=== PATIENT | female | born 1965 | race Caucasian/White ===

== ENCOUNTER 2017-11-04 17:42 | Inpatient (IN) | payer BC ==
--- NOTE | 2017-11-04 18:41 | ED ---
General Adult HPI - General Chief complaint: Psychiatric Symptoms Stated complaint: Mental Health Time Seen by Provider: 11/04/17 17:58 Source: patient, family, RN notes reviewed Mode of arrival: ambulatory Limitations: no limitations - History of Present Illness Initial comments: Chief complaint and history of present illness is a 52-year-old female here with her . There were sent over from her psychologist or psychiatrist office for evaluation. The psychiatrist [place] note saying that he met without a petition outlining her behavior. She has had paranoid thoughts, increased emotions, decreased functioning and lack of insight into need for treatment. She is on Wellbutrin, BuSpar and Seroquel. - Related Data Home Medications Medication Instructions Recorded Confirmed Multivitamins, Thera [Multivitamin 1 tab PO DAILY 11/04/17 11/04/17 (formulary)] [place]-3 Fatty Acids/Fish Oil [Fish 1 cap PO DAILY 11/04/17 11/04/17 Oil 1,000 mg Softgel] QUEtiapine [SEROquel] 100 mg PO HS 11/04/17 11/04/17 Ubidecarenone [Co Q-10] 100 mg PO DAILY 11/04/17 11/04/17 buPROPion HCL [Wellbutrin XL] 300 mg PO DAILY 11/04/17 11/04/17 busPIRone HCl [Buspar] 10 mg PO BID 11/04/17 11/04/17 Allergies Allergy/AdvReac Type Severity Reaction Status Date / Time Sulfa (Sulfonamide Allergy Rash/Hives Verified 11/04/17 19:16 Antibiotics) Review of Systems ROS Statement: Those systems with pertinent positive or pertinent negative responses have been documented in the HPI. Review of systems; patient is denying any headache or chest pain or shortness of breath GI/ problems. She does admit that she's being depressed. States she's not suicidal but her said she has stated and more recently that she wants to be . The patient will confirm this. Patient has lost weight recently. Decreased appetite. All systems are reviewed. Past medical problems sent episodes of hypoglycemia. Surgeries include hysterectomy. Family history mother had tongue cancer. Patient has ALLERGIES to sulfa. Recently she did increase her smoking encouraged to stop or at least decrease. Drink alcohol occasionally socially. Denies taking any medications other than those prescribed. ROS Other: All systems not noted in ROS Statement are negative. Past Medical History Past Medical History: No Reported History Additional Past Medical History / Comment(s): hypoglycemia History of Any Multi-Drug Resistant Organisms: None Reported Past Surgical History: Hysterectomy Past Psychological History: Anxiety, Depression Smoking Status: Current every day smoker Past Alcohol Use History: Occasional Past Drug Use History: None Reported General Exam - General Exam Comments Initial Comments: General: The patient is awake and alert, sent in by her psychiatrist for evaluation for paranoids thoughts decreased functioning of late. reports getting progressively worse over the past several months. Vital signs shows temperature 98.3 pulse 84 respiratory rate 24 pulse ox 96% room air blood pressure 136/81 Eye: Pupils are equal, round and reactive to light, extra-ocular movements are intact ; there is normal conjunctiva bilaterally. No signs of icterus. Ears, nose, mouth and throat: There are moist mucous membranes and no oral lesions. Neck: The neck is supple, there is no tenderness . Cardiovascular: There is a regular rate and rhythm. No murmur, rub or gallop is appreciated. Respiratory: Lungs are clear to auscultation, respirations are non-labored, breath sounds are equal. No wheezes, stridor, rales, or rhonchi. Gastrointestinal: Soft, non-distended, non-tender abdomen without masses or organomegaly noted. There is no rebound or guarding present. No CVA tenderness. Bowel sounds are unremarkable. Back: There is no tenderness to palpation in the midline. There is no obvious deformity. No rashes noted. Musculoskeletal: Normal ROM, no tenderness, There is no pedal edema. There is no calf tenderness or swelling. Sensation intact. Neurological: CN II-XII intact, There are no obvious motor or sensory deficits. Coordination appears grossly intact. Speech is normal. No numbness no tingling no focal or lateralizing findings. Skin: Skin is warm and dry and no rashes or lesions are noted. Psychiatric: Flat affect, admits that she's been depressed. states she has said she wants to be . Her psychiatrist sent her in for evaluation because of paranoid thoughts, increased emotions, decreased functioning and lack of insight into need for treatment. Limitations: no limitations Course Vital Signs 11/04/17 17:47 Temperature 98.3 F Pulse Rate 84 Respiratory 24 Rate Blood Pressure 136/81 O2 Sat by Pulse 96 Oximetry Medical Decision Making - Medical Decision Making Medical decision-making. The patient's here for psychiatric evaluation. Sent in by her psychiatrist. Lately she been hallucinating and stating she wants to . Drug triage is negative for drugs of abuse. No evidence of any Tylenol or aspirin in the system mother. Psychiatric nurse evaluated the patient spoke with the psychiatrist. Patient be admitted to [facility] for the evaluation of the diagnosis of psychosis nonspecific. The signed a petition filled out by the psych nurse. The patient's stated he could not spell well. He did sign the petition. I completed a certificate for admission for further evaluation. Dr. Benz - Lab Data Lab Results 11/04/17 11/04/17 Range/Units 18:52 18:52 Salicylates <1.0 mg/dL Urine Opiates Screen Not Detected (NotDetected) Ur Oxycodone Screen Not Detected (NotDetected) Urine Methadone Screen Not Detected (NotDetected) Ur Propoxyphene Screen Not Detected (NotDetected) Acetaminophen <10.0 ug/mL Ur Barbiturates Screen Not Detected (NotDetected) U Tricyclic Antidepress Not Detected (NotDetected) Ur Phencyclidine Scrn Not Detected (NotDetected) Ur Amphetamines Screen Not Detected (NotDetected) U Methamphetamines Scrn Not Detected (NotDetected) U Benzodiazepines Scrn Not Detected (NotDetected) Urine Cocaine Screen Not Detected (NotDetected) U Marijuana (THC) Screen Not Detected (NotDetected) Disposition Clinical Impression: Psychosis Disposition: TRANSFER TO PSYCH HOSP/UNIT Condition: Serious Referrals: Nimo Torres DO [Primary Care Provider] - 1-2 days
[2017-11-04 19:17] LABS: Acetaminophen <10.0 ug/mL; Amphetamine Screen,Urine Not Detected (NotDetected); Barbiturate Screen,Urine Not Detected (NotDetected); Benzodiazepines Screen,Urine Not Detected (NotDetected); Cocaine Screen,Urine Not Detected (NotDetected); Methadone Screen, Urine Not Detected (NotDetected); Opiate Screen,Urine Not Detected (NotDetected); Oxycodone Screen, Urine Not Detected (NotDetected); Phencyclidine Screen,Urine Not Detected (NotDetected); Salicylate <1.0 mg/dL; Tricyclic Antidepressant,Urine Not Detected (NotDetected); Urn Cannabinoid Scrn Not Detected (NotDetected)
[2017-11-04] MEDS ORDERED: LORazepam 1 MG TAB PO STA (21:02)
[2017-11-04] MEDS ORDERED: LORazepam 1 MG TAB PO PRN (21:59)
[2017-11-04] MEDS ORDERED: MAGNESIUM HYDROXIDE 2,400 MG/10 ML CUP PO PRN (21:59)
[2017-11-04] MEDS ORDERED: ACETAMINOPHEN TAB 325 MG TAB PO PRN (21:59)
[2017-11-04] MEDS ORDERED: ZIPRASIDONE 20 MG VIAL IM PRN (21:59)
[2017-11-04] MEDS ORDERED: MAG HYDROX/AL HYDROX/SIMETH 30 ML CUP PO PRN (21:59)
[2017-11-04] MEDS ORDERED: LORazepam 2 MG/ML INJ IM PRN (22:02)
[2017-11-04 22:12] LABS: Appearance,Urine Clear (Clear); Bilirubin,Urine Negative (Negative); Blood,Urine Negative (Negative); Color,Urine Yellow; Glucose,Urine (UA) Negative (Negative); Ketones,Urine Negative (Negative); Leukocyte Esterase,Urine Negative (Negative); Nitrite,Urine Negative (Negative); Protein,Urine Negative (Negative); Specific Gravity,Urine 1.015 (1.001-1.035); Urobilinogen,Urine <2.0 mg/dL (<2.0)
[2017-11-04] MEDS ORDERED: DIVALPROEX ER 250 MG TAB.ER.24H PO SCH (22:15)
[2017-11-04] MEDS ORDERED: QUEtiapine 100 MG TAB PO SCH (22:15)
[2017-11-05] MEDS: NON-FORMULARY DRUG (Omega-3 Fatty Acids/Fish Oil [Fish Oil 1,000 Mg Softgel] 1 CAP) PO SCH (08:29)
[2017-11-05] MEDS: NICOTINE 14MG/24HR PATCH TRANSDERM SCH (08:29)
[2017-11-05] MEDS: MULTIVITAMINS, THERA 1 EACH TAB PO SCH (08:29)
[2017-11-05 09:17] LABS: Basophils % (A) 1 %; Eosinophils # (A) 0.2 k/uL (0-0.7); Eosinophils % (A) 3 %; HGB 14.8 gm/dL (11.4-16.0); Lymphocytes # (A) 1.6 k/uL (1.0-4.8); Lymphocytes % (A) 23 %; MCH 31.6 pg (25.0-35.0); MCHC 33.7 g/dL (31.0-37.0); MCV 93.6 fL (80.0-100.0); Mean Platelet Volume 7.5; Monocytes # (A) 0.4 k/uL (0-1.0); Monocytes % (A) 6 %; Neutrophils # (A) 4.7 k/uL (1.3-7.7); Neutrophils % (A) 66 %; Platelet Count 226 k/uL (150-450); RDW 12.4 % (11.5-15.5); WBC 7.1 k/uL (3.8-10.6)
[2017-11-05 09:54] LABS: ALT 30 U/L (9-52); AST 24 U/L (14-36); Albumin 3.8 g/dL (3.5-5.0); Alkaline Phosphatase 81 U/L (38-126); Anion Gap 9 mmol/L; Blood Urea Nitrogen 15 mg/dL (7-17); Calcium 9.4 mg/dL (8.4-10.2); Carbon Dioxide 30 mmol/L (22-30); Chloride 104 mmol/L (98-107); Cholesterol 166 mg/dL (<200); Glucose 129 mg/dL (74-99); HDL Cholesterol 71 mg/dL (40-60); LDL Cholesterol,Calculated 82 mg/dL (0-99); Potassium 4.3 mmol/L (3.5-5.1); Sodium 143 mmol/L (137-145); Total Bilirubin 0.8 mg/dL (0.2-1.3); Total Protein 6.3 g/dL (6.3-8.2); Triglycerides 64 mg/dL (<150)
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
[2017-11-05] MEDS: ARIPiprazole 10 MG TAB PO SCH (10:44)
--- NOTE | 2017-11-05 17:45 | CONS ---
CONSULTATION DATE OF CONSULTATION: 11/05/2017 REASON FOR CONSULTATION: Medical management requested by Dr. Manjarrez. CONSULTATION: This is a 52-year-old patient who was admitted through the ER. She follows with Dr. Nimo Torres as a family doctor. Patient was sent in through [facility]. The patient had a petition filed by her stating patient was having paranoid thoughts, visual hallucinations, weight loss; she was stating "I am going to "; she was also having thoughts of having an affair, also having visual hallucinations about the woman he was having an affair with; also that people at work were conspiring against her. Appetite has gone down. She has lost about 10 to 12 pounds recently. Also her sleep has gone down and she was having some hopeless thoughts. Denies harming other people. Patient does take psychotropic medications at home. REVIEW OF SYSTEMS: CONSTITUTIONAL: Tired. Weight loss. HEENT: Some itchiness and dryness in the eye. RESPIRATORY: Some cough. Occasional wheezing. CARDIOVASCULAR: None. GASTROINTESTINAL: None. GENITOURINARY: None. MUSCULOSKELETAL: None. DERMATOLOGICAL: None. HEMATOLOGICAL: None. LYMPHATICS: None. PSYCHIATRY: As above. NEUROLOGICAL: None. PAST MEDICAL HISTORY: 1. Anxiety. 2. Depression. 3. Hypoglycemia. PAST SURGICAL HISTORY: Hysterectomy. SOCIAL HISTORY: . Has smoked about a pack a day for close to 40 years. Alcohol rarely. Denies using recreational drugs. HOME MEDICATIONS: 1. BuSpar 10 mg b.i.d. 2. Wellbutrin XL 300 mg p.o. daily. 3. CO-Q 10 100 mg p.o. daily. 4. Seroquel 100 mg at bedtime. 5. Fish oil 1 capsule p.o. daily. 6. Multivitamin 1 tablet p.o. daily. ALLERGIES: SULFA. PHYSICAL EXAMINATION: Temperature 97.5, pulse 75, respiration 14, blood pressure 125/58, pulse ox 96% on room air. GENERAL APPEARANCE: Thin build, sitting up. BMI 18.9. Anxious-appearing. EYES: Pupils equal. Conjunctivae normal. HEENT: External appearance of nose and ears normal. Oral cavity normal. NECK: JVD not raised. Mass not palpable. RESPIRATORY: Effort normal. LUNGS: Diminished breath sounds. Minimal wheezing. CARDIOVASCULAR: First and second sounds normal. No edema. ABDOMEN: Soft, nontender. Liver and spleen not palpable. LYMPHATIC: No lymph node palpable in neck or axillae. PSYCHIATRY: Patient is answering questions. Mood and affect anxious-appearing. INVESTIGATIONS: White count 7.1, hemoglobin 14.8, potassium 4.3. BUN and creatinine are normal. LDL 82. TSH is normal. UA negative. Urine drug screen negative. ASSESSMENT: 1. Emphysema on clinical examination from smoking with minimal exacerbation, if any. 2. Chronic nicotine dependence. Patient is a cigarette smoker. 3. Psychosis, unspecified. 4. Insomnia from underlying psychiatric condition. PLAN: Patient advised against smoking, getting a nicotine patch. Will put the patient on a short spell of Duonebs while she is in the hospital and hoping that will control the minimum symptoms she has. She should follow up with her family doctor upon discharge. Care was discussed with the patient. Questions were answered. Thank you, Dr. Manjarrez. LAMONT / IVETH: [id number] /
[2017-11-05] MEDS: ARTIFICIAL TEARS-HYPROMELLOSE DROPS 15 ML BTL BOTH EYES SCH ×2 (17:58→20:17)
[2017-11-05] MEDS ORDERED: IPRATROPIUM 0.5 MG/2.5 ML NEBU INHALATION SCH (20:00)
[2017-11-05 20:16] LABS: Hemoglobin A1C 5.9 % (4.0-6.0)
[2017-11-05] MEDS: IPRATROPIUM-ALBUTEROL 3 ML NEB INHALATION SCH (20:26)
[2017-11-05] MEDS ORDERED: QUEtiapine 100 MG TAB PO SCH (21:00)
[2017-11-06 05:30] VITALS: RESP 16
[2017-11-06] MEDS: MULTIVITAMINS, THERA 1 EACH TAB PO SCH (08:46)
[2017-11-06] MEDS: ARIPiprazole 10 MG TAB PO SCH (08:46)
[2017-11-06] MEDS: NICOTINE 14MG/24HR PATCH TRANSDERM SCH (08:47)
[2017-11-06] MEDS: ARTIFICIAL TEARS-HYPROMELLOSE DROPS 15 ML BTL BOTH EYES SCH ×4 (08:47→20:13)
[2017-11-06] MEDS: IPRATROPIUM-ALBUTEROL 3 ML NEB INHALATION SCH ×3 (08:53→22:20)
[2017-11-06] MEDS: NON-FORMULARY DRUG (Omega-3 Fatty Acids/Fish Oil [Fish Oil 1,000 Mg Softgel] 1 CAP) PO SCH (09:11)
--- NOTE | 2017-11-06 14:55 | P.PN ---
Progress Note - Text Interval history: The patient is found in the hallway she follows me to an interview room. She continues to report paranoid thinking. She lacks insight into the symptoms and asked to be discharged. We discussed the events precipitating this admission and treatment goals that we have prior to discharge. She has complied with the Abilify we discussed the purpose of this medication again her questions were answered. She does have a family meeting scheduled for today to be facilitated by social work. Appetite is stable she reports sleeping approximate 7 hours last night. Mental status exam: The patient is a thin female appearing her stated age. Eye contact is appropriate speech is fluent. She is dressed in her own clothing. Hygiene grooming adequate. She reports no suicidal ideation or homicidal ideation. She continues to have some confusion and reports continued paranoid thinking. She lacks insight into her symptoms and asked to be discharged today. She is oriented to person place and date. She demonstrates no verbal or physical aggressiveness. She demonstrates no abnormal involuntary movements. Plan: The patient will continue on the Abilify we will titrate the dose to 15 mg daily. I was able to speak with her psychiatric nurse practitioner yesterday. There appears to be no history of bipolar disorder. We will monitor her for safety and encourage her participation in the milieu.
[2017-11-07] MEDS: NICOTINE 14MG/24HR PATCH TRANSDERM SCH (09:11)
[2017-11-07] MEDS: MULTIVITAMINS, THERA 1 EACH TAB PO SCH (09:12)
[2017-11-07] MEDS: ARTIFICIAL TEARS-HYPROMELLOSE DROPS 15 ML BTL BOTH EYES SCH ×4 (09:12→20:11)
[2017-11-07] MEDS: NON-FORMULARY DRUG (Omega-3 Fatty Acids/Fish Oil [Fish Oil 1,000 Mg Softgel] 1 CAP) PO SCH (09:12)
[2017-11-07] MEDS: ARIPiprazole 15 MG TAB PO SCH (09:13)
[2017-11-07] MEDS: IPRATROPIUM-ALBUTEROL 3 ML NEB INHALATION SCH ×3 (09:43→21:16)
--- NOTE | 2017-11-07 12:13 | P.PN ---
Progress Note - Text Interval history: The patient is found in the library she follows me to an interview room. She initially states the medicine seems to be helping her but she cannot characterize how. She states that she is scared to be honest with her . She feels that the family meeting did not go well however social work notes did not reflect that. She wonders if everything with her family can be fixed or if it's too late. She describes a history of just blurting out statements that may have been offensive. Several times she states she would like to be discharged from the hospital. Again we discussed the the need for her to be more clinically stable prior to discharge. Mental status exam: The patient is a thin female she stressor own clothing she is mildly disheveled. Hygiene is adequate. She has a distraught affect and is almost tearful. She is very uncertain. She feels that she has broken things in her family that may not be able to be fixed. She is vague in describing many of her concerns. She feels that she needs to be honest with her but doesn't know how. She continues to have some paranoid thinking. Insight and judgment is impaired. She demonstrates no verbal or physical aggressiveness she demonstrates no abnormal involuntary movements. She frequently holds her head in her hand as she feels overwhelmed. Plan: The patient will continue on the Abilify. We will monitor her for safety and encourage her participation in the milieu. She continues to have acute symptoms requiring further psychiatric hospitalization. Vital signs reviewed.
[2017-11-07 13:53] VITALS: BMI 18.9
[2017-11-08] MEDS: ARIPiprazole 15 MG TAB PO SCH (08:02)
[2017-11-08] MEDS: NON-FORMULARY DRUG (Omega-3 Fatty Acids/Fish Oil [Fish Oil 1,000 Mg Softgel] 1 CAP) PO SCH (08:02)
[2017-11-08] MEDS: ARTIFICIAL TEARS-HYPROMELLOSE DROPS 15 ML BTL BOTH EYES SCH ×4 (08:02→21:15)
[2017-11-08] MEDS: MULTIVITAMINS, THERA 1 EACH TAB PO SCH (08:02)
[2017-11-08] MEDS: NICOTINE 14MG/24HR PATCH TRANSDERM SCH (08:02)
[2017-11-08] MEDS: IPRATROPIUM-ALBUTEROL 3 ML NEB INHALATION SCH ×3 (09:56→19:14)
--- NOTE | 2017-11-08 11:00 | P.PN ---
Progress Note - Text Interval history: The patient is found in the hallway she follows me to an interview room. She reports that she feels better but continues to ruminate on the same seems that we discussed yesterday. She continues to be fearful and has some paranoid thinking. She is reporting no side effects from the Abilify. Her questions regarding the medication were answered. She continues to voice a preference to be discharged as soon as possible. We discussed that she has a deferral conference scheduled for tomorrow. Mental status exam: The patient is a thin female appearing her stated age. She presents with adequate hygiene grooming. Eye contact is appropriate. She has a sad-appearing affect she is not tearful however. She reports no suicidal or homicidal ideation intent or plan. She is endorsing no hallucinations today. She does continue to have the same ruminative thoughts with some paranoid thinking. She continues to believe that she has done things wrong in the past and doesn't know if they can be fixed. It does not appear that these thoughts are entirely reality based. Insight and judgment are limited. She demonstrates no verbal or physical aggressiveness she demonstrates no abnormal involuntary movements. He Plan: The patient will continue on the Abilify at its current dose. Vital signs reviewed. She reports she has been eating and sleeping adequately. We will monitor for symptoms of psychosis. She is encouraged to continue participating in the milieu and we will continue to monitor for safety.
--- NOTE | 2017-11-08 15:56 | PN ---
PROGRESS NOTE DATE OF SERVICE: 11/08/2017 PRESENTING COMPLAINT: Psychosis. INTERVAL HISTORY: Patient admitted with psychosis to the psychiatric unit. Patient is a smoker, had prescribed nebulized bronchodilators. Patient refused the same. The patient is pretty much withdrawn, being with herself. The patient is still having some psychotic thought process. She has been eating a little bit. Sleep is still somewhat disturbed. Has been up and about otherwise. During my interview, does seem to be somewhat withdrawn. REVIEW OF SYSTEMS: Done for constitutional, cardiovascular, GI, pulmonary; relevant findings as above. CURRENT MEDICATIONS: Current medications are reviewed that include: 1. DuoNeb. 2. Artificial Tears. 3. Nicotine patch. 4. Abilify. PHYSICAL EXAMINATION: Temperature 97.5, pulse 104, respiration 16, blood pressure 99/55. GENERAL APPEARANCE: Sitting on the edge of the bed, comfortable. EYES: Pupils equal. Conjunctivae normal. HEENT: External appearance of nose and ears normal. Oral cavity normal. NECK: JVD not raised. Mass not palpable. RESPIRATORY: Effort normal. LUNGS: Diminished breath sounds. CARDIOVASCULAR: First and second sounds normal. No edema. ABDOMEN: Soft, nontender. Liver and spleen not palpable. PSYCHIATRY: Patient does appear rather withdrawn, but is answering my questions. INVESTIGATIONS: TSH normal. ASSESSMENT: 1. Emphysema in a smoker. Patient is refusing her breathing treatments. 2. Chronic nicotine dependence. Patient is an active cigarette smoker on a nicotine patch. 3. Psychosis, unspecified. 4. Insomnia from underlying psychiatric condition. PLAN: At this point, will discontinue patient's breathing treatments; at least thankfully here patient is not smoking. Patient should at least be discharged with a nicotine patch and follow up with her family doctor. MMODL / IJN: [id number] /
[2017-11-09] MEDS: ARTIFICIAL TEARS-HYPROMELLOSE DROPS 15 ML BTL BOTH EYES SCH ×4 (08:19→22:28)
[2017-11-09] MEDS: NICOTINE 14MG/24HR PATCH TRANSDERM SCH (08:19)
[2017-11-09] MEDS: MULTIVITAMINS, THERA 1 EACH TAB PO SCH (08:20)
[2017-11-09] MEDS: ARIPiprazole 15 MG TAB PO SCH (08:20)
[2017-11-09] MEDS: NON-FORMULARY DRUG (Omega-3 Fatty Acids/Fish Oil [Fish Oil 1,000 Mg Softgel] 1 CAP) PO SCH (08:20)
[2017-11-09] MEDS: IPRATROPIUM-ALBUTEROL 3 ML NEB INHALATION SCH ×3 (09:06→21:18)
--- NOTE | 2017-11-09 09:33 | P.PN ---
Progress Note - Text Interval history: The patient is found in the hallway she follows me to an interview room. She reports her mood is improving. She states that she would like to plan on a discharge today. She has some anxiety regarding her deferral conference today and we reviewed that in detail. We reviewed her psychotropic medication. It does seem that the Wellbutrin helped her mood in the past and we decided that we would reinitiate the Wellbutrin today. Social work notes reviewed they indicate that the patient's 's comfortable her being discharged sometime this week. Vital signs reviewed. The patient states that she sleeping she is eating better. Mental status exam: The patient is a thin female appearing her stated age. Hygiene and grooming are adequate. Eye contact is appropriate. Speech is fluent and spontaneous nonpressured. She maintains a constricted affect. She somewhat repetitive and requesting to go home. She has feelings of guilt regarding the fact that she is here. She is reporting no suicidal or homicidal ideation intent or plan. She is endorsing no auditory or visual hallucinations. She is endorsing no specific delusions. She states she no longer has thoughts of her being unfaithful. For the most part she seems to be sincere in her report however she may be minimizing some symptoms to facilitate a discharge. She demonstrates no verbal or physical aggressiveness she demonstrates no abnormal involuntary movements. Insight and judgment slowly improving. Plan: The patient will continue on her current dose of Abilify we will restart Wellbutrin XL 150 mg in the morning. I will confer with the treatment team regarding her daily status. We will consider discharging her in the next 1-2 days if there are no acute safety risks. She is encouraged to continue participating in the milieu.
[2017-11-09] MEDS: buPROPion XL 150 MG TAB.ER.24H PO SCH (11:38)
[2017-11-10 06:45] VITALS: BP 101/60; PULSE 86; TEMP 97.6
[2017-11-10] MEDS: MULTIVITAMINS, THERA 1 EACH TAB PO SCH (08:35)
[2017-11-10] MEDS: buPROPion XL 150 MG TAB.ER.24H PO SCH (08:35)
[2017-11-10] MEDS: ARIPiprazole 15 MG TAB PO SCH (08:35)
[2017-11-10] MEDS: ARTIFICIAL TEARS-HYPROMELLOSE DROPS 15 ML BTL BOTH EYES SCH (08:35)
[2017-11-10] MEDS: NON-FORMULARY DRUG (Omega-3 Fatty Acids/Fish Oil [Fish Oil 1,000 Mg Softgel] 1 CAP) PO SCH (08:36)
[2017-11-10] MEDS: IPRATROPIUM-ALBUTEROL 3 ML NEB INHALATION SCH ×2 (09:02→12:21)
--- NOTE | 2017-11-10 09:20 | P.DS ---
Providers Date of admission: 11/04/17 21:26 Expected date of discharge: 11/10/17 Attending physician: Rico Manjarrez Consults: 11/04/17 21:59 Consult Physician Routine Consulting Provider: Mickey Cedillo Consult Reason/Comments: follow up H & P Do you want consulting provider notified?: Yes Primary care physician: Nimo Torres - Discharge Diagnosis(es) (1) Psychosis Current Visit: Yes Status: Acute Priority: High Hospital Course: Brief summary of admission note: This patient is a 52-year-old female who was admitted to the mental health unit through the emergency room for acute symptoms of psychosis. The patient was petition by her stating she was having paranoid thoughts visual hallucinations weight loss and stated she wanted to . For 2-3 years she had been struggling with the thought that her was having an extramarital affair. At times she would experience visual hallucinations of the woman she thought he was having the affair with. She described concerns that people at work were conspiring against her and she felt she was monitored by local police that would drive by her home. She endorsed ideas of reference. She has a history of being treated for depression and anxiety symptoms. For full details please refer to my psychiatric evaluation dated 11/15/2017. Summary of hospital course: The patient was admitted to the mental health unit. She was admitted on a petition and clinical certificate. She was allowed to sign a voluntary admission form on the night of her admission however I did not feel that was appropriate due to the severity of her psychosis. Upon meeting her I did not feel she could understand the difference between voluntary and involuntary admission. She had verbalized she wanted to be released immediately and we were not able to have a clear conversation regarding medication choices. I did complete a second clinical certificate. The patient did participate in a deferral conference yesterday and did decide to defer her hearing. She is aware that she has agreed to complying with outpatient treatment for. His 90 days. We discussed the consequences of not complying with treatment as outlined in the deferral agreement. The patient was started on Abilify the dose was titrated to 15 mg daily. She was restarted on Wellbutrin XL 150 mg in the morning. Over the course of the stay the patient's acute symptoms of psychosis have abated. She reports her mood is improved and she feels more capable of caring for herself. Her was involved in a support meeting facilitated by social work which went well. Social work subsequently was in contact with the via phone and he agrees that the patient is improving and he is looking forward to her discharge home. The patient was seen by internal medicine for routine history and physical exam. I was able to discuss her care with her outpatient provider Mr. Cruz during the hospitalization. Mental status exam: The patient is a thin female appearing her stated age. She presents with good hygiene grooming. She is dressed in her own clothing. Eye contact is appropriate speech is fluent spontaneous nonpressured. She reports her mood is better her affect is more euthymic. Her insight has definitely improved her judgment is appropriate. She is reporting no suicidal or homicidal ideation intent or plan. She does not feel hopeless. She is endorsing no auditory or visual hallucinations or specific delusions. There is no observed evidence of psychosis. She demonstrates no tangential thinking loose associations or flight of ideas. She does not appear hypomanic or manic. She seated calmly she demonstrates no agitated behavior she demonstrates no verbal or physical aggressiveness. She demonstrates no abnormal involuntary movements. She remains oriented to person place and date. She demonstrates future oriented thinking outlining several short-term goals. Impressions 1. Psychosis and specified, rule out major depressive disorder recurrent severe with psychosis, rule out bipolar disorder with psychosis Plan: The patient will be discharged mental health unit today to return home residing with her . She will continue on Abilify 15 mg daily and Wellbutrin XL 150 mg in the morning. I suspect the Wellbutrin may be titrated back to the 300 mg dose in the outpatient setting. The patient will continue following up with [facility] where she sees Mr. Cruz and her therapist. There is no imminent safety risk she is appropriate for transition back to outpatient care. She is instructed to return to the hospital with any acute safety concerns. Patient Condition at Discharge: Stable Plan - Discharge Summary Discharge Rx Participant: No New Discharge Prescriptions: New ARIPiprazole [Abilify] 15 mg PO DAILY #30 tab buPROPion XL [Wellbutrin XL] 150 mg PO DAILY #30 tab.er.24h Nicotine 14Mg/24Hr Patch [Habitrol] 1 patch TRANSDERM DAILY #12 patch Continue [place]-3 Fatty Acids/Fish Oil [Fish Oil 1,000 mg Softgel] 1 cap PO DAILY Multivitamins, Thera [Multivitamin (formulary)] 1 tab PO DAILY Ubidecarenone [Co Q-10] 100 mg PO DAILY Discontinued buPROPion HCL [Wellbutrin XL] 300 mg PO DAILY QUEtiapine [SEROquel] 100 mg PO HS No Action busPIRone HCl [Buspar] 10 mg PO BID Discharge Medication List Multivitamins, Thera [Multivitamin (formulary)] 1 tab PO DAILY 11/04/17 [History ] [place]-3 Fatty Acids/Fish Oil [Fish Oil 1,000 mg Softgel] 1 cap PO DAILY [History] Ubidecarenone [Co Q-10] 100 mg PO DAILY 11/04/17 [History] busPIRone HCl [Buspar] 10 mg PO BID 11/04/17 [History] ARIPiprazole [Abilify] 15 mg PO DAILY #30 tab 11/10/17 [Rx] Nicotine 14Mg/24Hr Patch [Habitrol] 1 patch TRANSDERM DAILY #12 patch 11/10/17 [ Rx] buPROPion XL [Wellbutrin XL] 150 mg PO DAILY #30 tab.er.24h 11/10/17 [Rx] Follow up Appointment(s)/Referral(s): [facility] [Outside] - 11/15/17 11:00 am (w/ Hari Bergeron) Nimo Torres DO [Primary Care Provider] - As Needed Patient Instructions/Handouts: Bipolar Disorder (DC) Activity/Diet/Wound Care/Special Instructions: f/u with outpt provider for hbg a1c of 5.9 Activity and diet as tolerated. Avoid the use of street drugs and alcohol. Take all medications as prescribed. When you are in need of refills on your medications please contact your medical provider and/or outpatient psychiatrist to have this done. Please go to scheduled outpatient appointment for aftercare. If symptoms return or become worse call the crisis line at and/ or go to the nearest emergency room for an evaluation.
[2017-11-10] MEDS: NICOTINE 14MG/24HR PATCH TRANSDERM SCH (09:38)
== END 2017-11-10 13:29 | disposition home or self-care (01) | DRG 885 ==
LOC: EC 17:42 → 3MHU 21:26
PROVIDERS: ADMIT Psychiatry & Neurology Psychiatry; ATTEND Psychiatry & Neurology Psychiatry
DX: F29 Unspecified psychosis not due to a substance or known physiological condition (principal); F17.210 Nicotine dependence, cigarettes, uncomplicated; Z68.1 Body mass index [BMI] 19.9 or less, adult; F32.9 Major depressive disorder, single episode, unspecified; F41.9 Anxiety disorder, unspecified; T65.221A Toxic effect of tobacco cigarettes, accidental (unintentional), initial encounter; J68.4 Chronic respiratory conditions due to chemicals, gases, fumes and vapors; G47.00 Insomnia, unspecified; R63.4 Abnormal weight loss; Z53.29 Procedure and treatment not carried out because of patient's decision for other reasons; Z79.899 Other long term (current) drug therapy; Z88.2 Allergy status to sulfonamides; Z71.6 Tobacco abuse counseling; Z90.710 Acquired absence of both cervix and uterus; Z81.8 Family history of other mental and behavioral disorders
CPT/HCPCS: 36415; 80053; 80061; 80306; 81003; 81025; 83036; 83520; 84443; 85025; 99285

== ENCOUNTER → 2024-11-15 | Outpatient (CLI) | payer MEDICARE ==
[2024-11-15 12:07] LABS: INR 0.9 (<1.2); Prothrombin Time 10.1 sec (10.0-12.5)
--- NOTE | 2024-11-15 12:48 | CT ---
All EXAMINATION TYPE: CT right knee - [facility] Protocol DATE OF EXAM: 11/15/2024 12:31 PM COMPARISON: None. CLINICAL INDICATION: Female, 59 years old with history of M17.11 UNILATERAL PRIMARY OSTEOARTHRITIS, R IGHT KN, pre-op right knee, TECHNIQUE: Axial CT was performed with sagittal and coronal reformats. 3D reconstruction performed on a separate workstation. IV CONTRAST: , patient injected with mL of . (None if empty) CT DLP: 453.9 mGycm, Automated exposure control for dose reduction was used. FINDINGS: Severe narrowing medial tibiofemoral joint space underlying subchondral sclerosis and associated spur formation. Patellofemoral joint space is well-preserved as is the lateral compartment. No fracture o r dislocation. Right hip and right ankle are grossly unremarkable. IMPRESSION: 1. Preoperative planning for osteoarthritis right knee. [facility], , 11/15/2024 12:46 PM
[2024-11-15 15:57] LABS: ALT 21 U/L (8-44); AST 26 U/L (13-35); Alkaline Phosphatase 107 U/L (41-126); Blood Urea Nitrogen 11.4 mg/dL (9.0-27.0); Calcium 9.6 mg/dL (8.7-10.3); Chloride 104 mmol/L (96-109); Glucose 89 mg/dL (70-110); Potassium 4.7 mmol/L (3.5-5.5); Sodium 140 mmol/L (135-145); Total Bilirubin 0.4 mg/dL (0.3-1.2)
[2024-11-15 16:02] LABS: Basophils # (A) 0.07 X 10*3/uL (0.00-0.10); Basophils % (A) 0.7 %; Eosinophils # (A) 0.64 X 10*3/uL (0.04-0.35); Eosinophils % (A) 6.6 %; HCT 37.1 % (37.2-46.3); HGB 12.3 g/dL (12.0-15.0); Lymphocytes # (A) 1.78 X 10*3/uL (0.90-5.00); Lymphocytes % (A) 18.4 %; MCH 32.5 pg (27.0-32.0); MCHC 33.2 g/dL (32.0-37.0); MCV 98.1 FL (80.0-97.0); Mean Platelet Volume 12.3 FL (9.5-12.2); Monocytes # (A) 0.57 X 10*3/uL (0.20-1.00); Monocytes % (A) 5.9 %; NRBC Per 100 WBC 0 X 10*3/uL (0.00-0.01); Neutrophils # (A) 6.61 X 10*3/uL (1.80-7.70); Neutrophils % (A) 68.2 %; Platelet Count 237 X 10*3/uL (140-440); RBC 3.78 X 10*6/uL (4.10-5.20); RDW 12.8 % (11.5-14.5); WBC 9.69 X 10*3/uL (4.50-10.00)
== END ==
LOC: LABWHC1 11:06
PROVIDERS: ATTEND Orthopaedic Surgery
DX: Z01.818 Encounter for other preprocedural examination (principal); M17.11 Unilateral primary osteoarthritis, right knee; M21.161 Varus deformity, not elsewhere classified, right knee; Z22.322 Carrier or suspected carrier of Methicillin resistant Staphylococcus aureus
CPT/HCPCS: 36415; 80053; 83036; 85025; 85610; 85730; 87070

== ENCOUNTER 2024-12-08 10:19 | Day surgery (SDC) | payer MEDICARE ==
[~2024-12-08 10:19] MED LIST: TRANEXAMIC 1,000 MG/100ML-NACL 1,000 MG in SALINE 1 100ML.BAG IV PRN; TRANEXAMIC 1,000 MG/100ML-NACL 1,000 MG in SALINE 1 100ML.BAG IVPB PRN
[2024-12-08] MEDS: IV FLUID CONTINUATION 1,000 ML IV ONE (10:35)
[2024-12-08] MEDS: ONDANSETRON 4 MG/2 ML VIAL IVP PRN (11:11)
[2024-12-08] MEDS: oxyCODONE ER 10 MG TAB.ER.12H PO PRN (11:11)
[2024-12-08] MEDS: ACETAMINOPHEN TAB 500 MG TAB PO PRN (11:11)
[2024-12-08] MEDS: LACTATED RINGERS 1,000 ML IV SCH (11:11)
[2024-12-08] MEDS: DOCUSATE 100 MG CAP PO PRN (11:11)
[2024-12-08] MEDS: FAMOTIDINE 20 MG/2 ML VIAL IVP PRN (11:12)
[2024-12-08] MEDS: DEXAMETHASONE SOD PHOSPHATE 10 MG/ML 1 ML VIAL IV PRN (11:12)
[2024-12-08] MEDS: KETOROLAC 15 MG/ML 1 ML VIAL IVP PRN (11:13)
[2024-12-08] MEDS: MIDAZOLAM 2 MG/2 ML VIAL IV PRN (11:21)
--- NOTE | 2024-12-08 11:46 | P.ANPRN ---
Procedure Note - Anesthesia - Nerve Block Performed Right iPack Single Time Out Performed: Yes Date of Procedure: 12/08/24 Procedure Start Time: Procedure Stop Time: Location of Patient: PreOp Indication: Acute Post-Operative Pain, Analgesia, Requested by Surgeon Sedation Type: Sedate with meaningful contact maintained Preparation: Sterile Prep Position: Left Lateral Catheter: None Needle Types: Pajunk Needle Gauge: 21 Ultrasound used to visualize needle placement: Yes Ultrasound used to observe medication spread: Yes Injectate: 0.5% Ropivacaine (see comment for volume) ([id number]) Blood Aspirated: No Pain Paresthesia on Injection Noted: No Resistance on Injection: Normal Image Stored and Saved: Yes Events: Uneventful and Well Tolerated
--- NOTE | 2024-12-08 11:47 | P.ANPRN ---
Procedure Note - Anesthesia - Nerve Block Performed Right Adductor Canal Single Time Out Performed: Yes Date of Procedure: 12/08/24 Procedure Start Time: Procedure Stop Time: Location of Patient: PreOp Indication: Acute Post-Operative Pain, Analgesia, Requested by Surgeon Sedation Type: Sedate with meaningful contact maintained Preparation: Sterile Prep Position: Supine Catheter: None Needle Types: Pajunk Needle Gauge: 21 Ultrasound used to visualize needle placement: Yes Ultrasound used to observe medication spread: Yes Injectate: 0.5% Ropivacaine (see comment for volume) ([id number]) Blood Aspirated: No Pain Paresthesia on Injection Noted: No Resistance on Injection: Normal Image Stored and Saved: Yes Events: Uneventful and Well Tolerated
[2024-12-08] MEDS ORDERED: ROCURONIUM 10 MG/ML (5 ML VIAL) IV ONE (12:50)
[2024-12-08] MEDS ORDERED: SUCCINYLCHOLINE CHLORIDE 200 MG/10 ML VIAL IV ONE (12:50)
[2024-12-08] MEDS ORDERED: DEXAMETHASONE SOD PHOSPHATE 4 MG/ML 1 ML VIAL ONE (12:50)
[2024-12-08] MEDS ORDERED: fentaNYL (PF) 50 MCG/ML 2 ML AMP ONE (12:50)
[2024-12-08] MEDS ORDERED: LIDOCAINE 1% INJ 10MG/ML (20 ML MDV) ONE (12:50)
[2024-12-08] MEDS ORDERED: ROPIVACAINE 5 MG/ML 30 ML VIAL ONE (12:50)
[2024-12-08] MEDS ORDERED: TRANEXAMIC 1,000 MG/100ML-NACL PREMIX BAG ONE (12:50)
[2024-12-08] MEDS ORDERED: PROPOFOL 10 MG/ML 20 ML VIAL IV ONE (12:50)
[2024-12-08] MEDS ORDERED: MIDAZOLAM 2 MG/2 ML VIAL ONE (12:50)
[2024-12-08] MEDS ORDERED: NEOSTIGMINE 1 MG/ML 10 ML VIAL ONE (12:50)
[2024-12-08] MEDS ORDERED: HYDROmorphone (PF) 1 MG/ML ONE (12:50)
[2024-12-08] MEDS ORDERED: GLYCOPYRROLATE 0.2 MG/ML 2 ML VIAL ONE (12:50)
[2024-12-08] MEDS ORDERED: PHENYLEPHRINE-0.9% NACL SYG 1,000 MCG/10 ML SYRINGE ONE (12:50)
[2024-12-08] MEDS: ceFAZolin 2 GM in DEXTROSE 5% IN WATER 50 ML IVPB PRN (12:55)
[2024-12-08] MEDS: ROPIVACAINE/EPI/CLONIDINE/KET 50 ML SYRINGE MISCELLANE PRN (13:20)
[2024-12-08] MEDS ORDERED: MAGNESIUM HYDROXIDE 2,400 MG/30 ML CUP PO PRN (14:42)
[2024-12-08] MEDS ORDERED: TEMAZEPAM 15 MG CAP PO PRN (14:42)
[2024-12-08] MEDS ORDERED: diazePAM 5 MG TAB PO PRN ×2 (14:42)
[2024-12-08] MEDS ORDERED: NA PHOS,M-B/NA PHOS,DI-BA 133 ML ENEMA RECTAL PRN (14:42)
[2024-12-08] MEDS ORDERED: HYDROmorphone 0.5 MG/0.5 ML SYRINGE IVP PRN (14:42)
[2024-12-08] MEDS ORDERED: bisacodyL 10 MG SUPP RECTAL PRN (14:42)
[2024-12-08] MEDS ORDERED: ONDANSETRON 4 MG/2 ML VIAL IVP PRN (14:42)
[2024-12-08] MEDS ORDERED: NALOXONE 0.4 MG/ML 1 ML VIAL IV PRN (14:42)
--- NOTE | 2024-12-08 14:42 | P.OP ---
Date of Procedure: 12/08/24 Preoperative Diagnosis: 1. Severe right knee osteoarthritis 2. Prior cigarette smoking Postoperative Diagnosis: Same Procedure(s) Performed: 1. Right total knee arthroplasty 2. Computer assisted musculoskeletal navigation using CT/MRI images Implants: 1. [place] Triathlon CR Femur Size #2 2. [place] Triathlon [place] Tibial Base Size #2 3. [place] Triathlon CS poly Size #2, 9-mm 4. [place] Triathlon all poly patella, Size #29 Anesthesia: RICK, regional Surgeon: Jakub García Software Test Automation Engineer #1: Brian Lopez Estimated Blood Loss (ml): 100 IV fluids (ml): 800 Pathology: none sent Condition: stable Disposition: PACU Indications for Procedure: I met with the patient preoperatively in the office setting and discussed treatment of their symptomatic knee arthritis. They failed a long course of nonsurgical treatment and elected to proceed with an elective total knee replacement. I discussed the potential risks and complications at length and gave them ample time to ask questions. Risks discussed included: risks from anesthesia, superficial site surgical infection, acute and/or chronic periprosthetic joint infection, delayed wound healing, drainage, wound necrosis, instability, stiffness, stiffness requiring manipulation and/or revision surgery, damage to local blood vessels or nerves, aseptic loosening of the implants, extensor mechanism issues including disruption, patellar maltracking, avascular necrosis etc., continued or worsened knee pain, generalized dissatisfaction with surgical outcome, need for revision surgery, an inability to regain preinjury level of function, DVT, PE, other medical complications, and possibly loss of life or limb. The patient voiced their understanding that while these are the most common complications other less common complications are possible. They provided both their verbal and written consent to go forward with surgery. The patient has a history of smoking and states she quit 2 weeks prior to surgery. She understands her elevated risk of wound healing and infection if she resumes smoking. She was strongly encourage to refrain from smoking. Operative Findings: Tricompartmental osteoarthritis Description of Procedure: The patient was identified in preoperative holding and the correct operative extremity was verified and marked with a marker. I reviewed the consent form w ith the patient at length. All of their questions were answered. The patient was given a block by anesthesia. They were then brought back to the operating room. They were transferred onto the operating room table where a general anesthetic, preoperative antibiotics, and tranexamic acid were administered by anesthesia. A tourniquet was applied to the proximal aspect of the operative extremity. The contralateral extremity was padded under the heel and secured to the operating room table with a nonsterile blue towel and tape. The ipsilateral arm was carefully draped across the patient's chest and secured with a pillow and foam. A post was applied over the lateral aspect of the ipsilateral thigh and a bolster was placed under the ipsilateral foot. I verified that the operative extremity was stable and the knee was flexed to 90. The operative extremity was then placed in a leg hernandez, nonsterile drapes were applied, and the extremity was prepped and draped sterilely in the standard sterile fashion. Prior to starting surgery timeout was performed identifying the correct patient, operative extremity, and procedure. The leg was then elevated, exsanguinated with an Esmarch bandage, and the tourniquet was inflated. An anterior midline incision was made sharply with a scalpel. Once I had dissected deep to the superficial fascial layer medial and lateral flaps were elevated. A medial parapatellar arthrotomy was created. Upon opening the knee joint there were diffuse arthritic changes in all 3 compartments. The anterior horn of the medial meniscus were sharply released and a medial release was performed around the posterior medial corner of the knee to facilitate retractor placement. The fat pad was excised with electrocautery. Remnants of the ACL and PCL were then excised from the notch. 4 mm pins were then placed within the incision in the medial distal femur and proximal tibia. Arrays were applied to the pins and I verified they were completely tightened. The knee was then registered with the Cirqle robot and manipulations in implant position were made to balance the knee and opitmize implant position. Using the Cirqle robotic saw all cuts were made in accordance with our plan. After all bony fragments had been removed the cuts were verified with the planar probe. The tibia was then subluxed forward and sized. The knee was brought into flexion and a lamina recreation instructor was placed to allow removal of the meniscal remnants both medially and laterally as well as posterior osteophytes. Local anesthetic was then infiltrated around the joint capsule. Trial implants were then placed within the knee. Range of motion and collateral ligament tension was then evaluated. Adjustments in implant size and position were then made accordingly. Once the knee was felt to be appropriately balanced the Gigi pins were removed. The patella was then cut, sized, and punched. A trial patellar button was then placed. With the trial components in place, the patella tracked midline. The femur was then drilled and the trial component removed. The trial tibial component was then appropriately rotated, pinned, and prepared for the keel. All trial components were then removed from the knee. The knee was thoroughly irrigated with pulsatile lavage. Cement was prepared via vacuum mixing in a bowl on the back table. Once the cement had reached appropriate consistency, I hand pressurized cement into the tibia and gently impacted the tibial implant into place. Cement was carefully removed from around the tibial tray and the poly liner was tapped into placed, engaging the locking mechanism. The femur was then exposed and cement was hand pressurized into the cut surfaces. The femoral implant was gently tapped into place and cement was carefully removed. A wet lap sponge was used to wipe down the bearing surface of the femur and the knee was extended to further pressurize cement. With the knee extended, cement was pressurized into the cut surface of the patella and the patella button was placed and compressed with a clamp. All extruded cement was removed including from the pin sites. The knee was held in extension until the cement had fully hardened. Once the cement had hardened the knee was evaluated one final time with the final polyethylene liner in place. The knee had full extension and flexion and felt stable to varus and valgus stress throughout the arc of motion. The tourniquet was released and with the tourniquet down the patella tracked midline. All bleeders were controlled with electrocautery. The knee was then soaked for 3 minutes with a dilute Betadine soak. The knee was thoroughly irrigated using 3 L of sterile saline and pulsatile lavage. A deep drain was placed. The extensor mechanism was then reapproximated using pop off Vicryl sutures followed by a running barbed suture. The knee was then closed in layers with a 0 strata fix for the deep fascial layer, 2-0 strata fix for the superficial subcutaneous layer and Monocryl and Steri-Strips for the skin. A sterile dressing and drain sponge were applied. I verified that all instrument, sponge, and sharp counts were correct. The patient was then transferred off the operating room table, extubated, and brought to recovery having tolerated the procedure well. Brian Lopez PA-C was required as a skilled assistant to the vice president due to the complexity of surgery for patient positioning, draping, exposure, retraction, closure of wound and application of dressing. PLAN: The patient can weight-bear as tolerated on the operative extremity. DVT prophylaxis with aspirin 81 mg twice a day based on preoperative risk stratification. Follow-up in the office in 2 weeks for wound check and x-rays of the knee including an AP and lateral.
--- NOTE | 2024-12-08 15:19 | XR ---
EXAMINATION TYPE: XR knee limited RT DATE OF EXAM: 12/08/2024 3:12 PM COMPARISON: CT CLINICAL INDICATION: Female, 59 years old with history of Evaluation for Postop abnormality and align ment; PHH, pain TECHNIQUE: XR knee limited RT 11/15/2024 views submitted. FINDINGS: Status post total knee arthroplasty changes with hardware in appropriate alignment and in tact. No evidence of fracture. Subcutaneous lucencies and lucencies within the joint consistent with surgical changes. IMPRESSION: Status post total knee arthroplasty changes with hardware intact and appropriate alignment. No fractu res identified. Joint spaces are preserved. No significant degeneration changes of the knee. [facility], , 12/08/2024 3:17 PM
[2024-12-08] MEDS: HYDROmorphone 0.5 MG/0.5 ML SYRINGE IVP PRN ×2 (15:31→20:48)
[2024-12-08] MEDS: HYDROcodone/APAP 10-325MG 1 EACH TAB PO PRN (17:35)
[2024-12-08] MEDS: hydrOXYzine pamoate 25 MG CAP PO PRN (17:38)
[2024-12-08] MEDS: SODIUM CHLORIDE 0.9% 1,000 ML IV SCH (19:56)
[2024-12-08 19:58] VITALS: RESP 17
[2024-12-08] MEDS: ASPIRIN 81 MG PO SCH (20:48)
[2024-12-08] MEDS: SENNOSIDES-DOCUSATE SODIUM 1 EACH TAB PO SCH (20:48)
[2024-12-08] MEDS: ceFAZolin 2 GM in DEXTROSE 5% IN WATER 50 ML IVPB SCH (21:33)
[2024-12-09] MEDS: HYDROcodone/APAP 5-325MG 1 EACH TAB PO PRN (00:28)
[2024-12-09 02:00] VITALS: PULSE 62
[2024-12-09] MEDS: HYDROmorphone 2 MG/ML 1 ML SYRINGE IVP PRN (03:21)
--- NOTE | 2024-12-09 08:49 | P.DS ---
Providers Date of admission: 12/08/2024 Attending physician: Jakub García Consults: 12/08/24 14:42 Consult Physician Routine Consulting Provider: Guzman Urias Consult Reason/Comments: post op medical management Do you want consulting provider notified?: Yes Primary care physician: Guzman Urias Hospital Course: The patient is a very pleasant 59-year-old female who was admitted yesterday and underwent an uncomplicated total knee replacement. Following surgery she was transferred to the orthopedic floor. She received 2 doses of postoperative antibiotics. She was transitioned from IV to oral pain medication. She was seen by me on postoperative day #1 and was doing well. The dressing over her knee was intact with no drainage or strikethrough. She had mild swelling. Femoral nerve function was intact. She was able to actively plantarflex and dorsiflex her ankle and her toes. She worked with physical therapy and did well. The patient had no complaints this morning other than mild pain. Internal medicine has been consulted but has not yet seen the patient. She was ultimately cleared for discharge home. Patient Condition at Discharge: Good Plan - Discharge Summary Discharge Rx Participant: No New Discharge Prescriptions: New Aspirin 81 mg PO BID #60 tab HYDROcodone/APAP 10-325MG [Weems 10-325] 1 tab PO Q6HR PRN #24 tab PRN Reason: Pain Ondansetron [Zofran] 4 mg PO Q8HR PRN #12 tab PRN Reason: Nausea Docusate [Colace] 100 mg PO BID #60 capsule Omeprazole [PriLOSEC] 40 mg PO DAILY #30 cap Doxycycline Monohydrate [Monodox] 100 mg PO BID #28 cap No Action [place]-3 Fatty Acids/Fish Oil [Fish Oil 1,000 mg Softgel] 1 cap PO DAILY Multivitamins, Thera [Multivitamin (formulary)] 1 tab PO DAILY Ubidecarenone [Co Q-10] 100 mg PO DAILY Nicotine 14Mg/24Hr Patch [Habitrol] 1 patch TRANSDERM DAILY #12 patch Albuterol Inhaler [Ventolin Hfa Inhaler] 1 - 2 inh INHALATION QID PRN PRN Reason: Shortness Of Breath Docusate [Colace] 100 mg PO DAILY PRN PRN Reason: Constipation DULoxetine HCL [Cymbalta] 60 mg PO DAILY Naproxen [Naprosyn] 500 mg PO DAILY PRN PRN Reason: Pain Aspirin [Adult Low Dose Aspirin EC] 81 mg PO HS Ezetimibe [Zetia] 10 mg PO DAILY Budesonide/Glycopyr/Formoterol [Breztri Aerosphere Inhaler] 1 puff INHALATION DAILY Sodium Chloride [Saline Nasal Mist] 1 dose NASAL DAILY PRN PRN Reason: Congestion Acetaminophen Tab [Tylenol Tab] 1,000 mg PO Q6H PRN PRN Reason: Pain Rosuvastatin [Crestor] 40 mg PO HS Plecanatide [Trulance] 3 mg PO DAILY Omeprazole [PriLOSEC] 20 mg PO DAILY Furosemide [Lasix] 20 mg PO DAILY Ipratropium [place] 0.06%Nasal [Atrovent Nasal 0.06%] 1 spray INHALATION DAILY Discharge Medication List Multivitamins, Thera [Multivitamin (formulary)] 1 tab PO DAILY 11/04/17 [History] [place]-3 Fatty Acids/Fish Oil [Fish Oil 1,000 mg Softgel] 1 cap PO DAILY 11/04/17 [History] Ubidecarenone [Co Q-10] 100 mg PO DAILY 11/04/17 [History] Nicotine 14Mg/24Hr Patch [Habitrol] 1 patch TRANSDERM DAILY #12 patch 11/10/17 [Rx] Acetaminophen Tab [Tylenol Tab] 1,000 mg PO Q6H PRN 12/05/24 [History] Albuterol Inhaler [Ventolin Hfa Inhaler] 1 - 2 inh INHALATION QID PRN 12/05/24 [History] Aspirin [Adult Low Dose Aspirin EC] 81 mg PO HS 12/05/24 [History] Budesonide/Glycopyr/Formoterol [Breztri Aerosphere Inhaler] 1 puff INHALATION DAILY 12/05/24 [History] DULoxetine HCL [Cymbalta] 60 mg PO DAILY 12/05/24 [History] Docusate [Colace] 100 mg PO DAILY PRN 12/05/24 [History] Ezetimibe [Zetia] 10 mg PO DAILY 12/05/24 [History] Furosemide [Lasix] 20 mg PO DAILY 12/05/24 [History] Ipratropium [place] 0.06%Nasal [Atrovent Nasal 0.06%] 1 spray INHALATION DAILY 12/05/24 [History] Naproxen [Naprosyn] 500 mg PO DAILY PRN 12/05/24 [History] Omeprazole [PriLOSEC] 20 mg PO DAILY 12/05/24 [History] Plecanatide [Trulance] 3 mg PO DAILY 12/05/24 [History] Rosuvastatin [Crestor] 40 mg PO HS 12/05/24 [History] Sodium Chloride [Saline Nasal Mist] 1 dose NASAL DAILY PRN 12/05/24 [History] Aspirin 81 mg PO BID #60 tab 12/09/24 [Rx] Docusate [Colace] 100 mg PO BID #60 capsule 12/09/24 [Rx] Doxycycline Monohydrate [Monodox] 100 mg PO BID #28 cap 12/09/24 [Rx] HYDROcodone/APAP 10-325MG [[place] 10-325] 1 tab PO Q6HR PRN #24 tab 12/09/24 [Rx] Omeprazole [PriLOSEC] 40 mg PO DAILY #30 cap 12/09/24 [Rx] Ondansetron [Zofran] 4 mg PO Q8HR PRN #12 tab 12/09/24 [Rx] Follow up Appointment(s)/Referral(s): Jakub García MD [Medical Doctor] - 2 Weeks Activity/Diet/Wound Care/Special Instructions: 1. Weight-bear as tolerated on your operative extremity unless instructed otherwise. Use a walker or other assistive device to ambulate. 2. Leave surgical dressing in place. If your dressing becomes saturated with blood, there is drainage, or the dressing becomes loose please contact the office. 3. It is okay to shower with your surgical dressing, but do not submerge in water (no hot tubs, bath's, swimming etc.) 4. Make sure to take her blood clot prevention medication as prescribed (aspirin, Eliquis, Xarelto, and Plavix are commonly prescribed medications for blood clot prevention) 5. While taking [place] or Percocet for pain make sure you're taking a stool softener (Colace) and drink lots of water. 6. Keep all follow-up appointments as scheduled. You will usually be seen in 1-2 weeks following surgery. 7. Please contact the office with any questions or concerns [phone] Discharge Disposition: HOME WITH HOME HEALTH SERVICES
[2024-12-09 09:31] LABS: HCT 30.1 % (37.2-46.3); HGB 9.8 g/dL (12.0-15.0); MCHC 32.6 g/dL (32.0-37.0); MCV 98.4 FL (80.0-97.0); Mean Platelet Volume 11.7 FL (9.5-12.2); NRBC Per 100 WBC 0 X 10*3/uL (0.00-0.01); Platelet Count 190 X 10*3/uL (140-440); RBC 3.06 X 10*6/uL (4.10-5.20); RDW 12.4 % (11.5-14.5); WBC 15.44 X 10*3/uL (4.50-10.00)
[2024-12-09 09:32] LABS: Basophils # (A) 0.01 X 10*3/uL (0.00-0.10); Basophils % (A) 0.1 %; Eosinophils # (A) 0 X 10*3/uL (0.04-0.35); Eosinophils % (A) 0 %; Lymphocytes # (A) 1.15 X 10*3/uL (0.90-5.00); Lymphocytes % (A) 7.4 %; Monocytes # (A) 0.86 X 10*3/uL (0.20-1.00); Monocytes % (A) 5.6 %; Neutrophils # (A) 13.36 X 10*3/uL (1.80-7.70); Neutrophils % (A) 86.5 %
[2024-12-09 10:46] VITALS: BP 119/70; TEMP 97.5
== END 2024-12-09 12:11 | disposition home health service (06) ==
LOC: OR 10:19 → 4SSUR 14:55 → OR 12-09 12:11
PROVIDERS: ATTEND Orthopaedic Surgery
DX: M17.11 Unilateral primary osteoarthritis, right knee (principal); F17.210 Nicotine dependence, cigarettes, uncomplicated; Z96.651 Presence of right artificial knee joint; Z88.2 Allergy status to sulfonamides; Z79.51 Long term (current) use of inhaled steroids; Z79.899 Other long term (current) drug therapy
CPT/HCPCS: 0055T; 27447; 64447; 64473; 85025

== ENCOUNTER → 2025-03-01 | Outpatient (CLI) | payer MEDICARE ==
--- NOTE | 2025-03-01 16:24 | MM ---
Reason for Exam: Screening (asymptomatic). Last mammogram was performed 2 year(s) and 4 month(s) ago. Patient History: Menarche at age 12. First Full-Term at age 24. Hysterectomy at age 41. Postmenopausal. US biopsy breast VAD LT - 2 on the Left side. Maternal grandmother had breast cancer. Risk Values: Pura 5 year model risk: 1.9%. NCI Lifetime model risk: 9.3%. Prior Study Comparison: 06/19/2019 Bilateral Screening Mammogram, Unknown. 07/18/2020 Bilateral Screening Mammogram, Unknown. 11/19/2022 Bilateral Screening Mammogram, Unknown. Tissue Density: There are scattered areas of fibroglandular density. Findings: Analyzed By CAD. Unchanged asymmetric density superior left MLO view. A benign tiny oil cyst calcification redemonstrated on either side. There is no suspicious group of microcalcifications or new suspicious mass in either breast. Overall Assessment: Benign, BI-RAD 2 Management: Screening Mammogram of both breasts in 1 year. Patient should continue monthly self-breast exams. A clinical breast exam by your physician is recommended on an annual basis. This exam should not preclude additional follow-up of suspicious palpable abnormalities. Note on Pura scores and lifetime risk: 1. A Pura score greater than 3% is considered moderate risk. If this is the case, consider specialist referral to assess eligibility for a risk reducing agent. 2. If overall lifetime risk for the development of breast cancer is 20% or higher, the patient may qualify for future screening with alternating mammogram and breast MRI. [facility], , 03/01/2025 4:21 PM. Electronically signed and approved by: Heather Broussard M.D. Radiologist
== END | disposition home or self-care (01) ==
LOC: RADMAMWWP 14:34
PROVIDERS: ATTEND Family Medicine
DX: Z12.31 Encounter for screening mammogram for malignant neoplasm of breast (principal); R92.323 Mammographic fibroglandular density, bilateral breasts; Z78.0 Asymptomatic menopausal state; Z80.3 Family history of malignant neoplasm of breast
CPT/HCPCS: 77063; 77067